=== PATIENT | male | born 1985 | race Caucasian/White ===

== ENCOUNTER 2017-10-02 21:45 | Emergency (ER) | payer OTHER ==
[2017-10-02] MEDS ORDERED: HYDROcodone/ACETAMIN 5-325 MG* 1 TAB PO ONE (22:29)
[2017-10-02] MEDS ORDERED: Orphenadrine Citrate IV* 30 MG/ML 2 ML VIAL IM ONE (22:31)
[2017-10-02] MEDS ORDERED: predniSONE TAB* 20 MG PO ONE (22:31)
--- NOTE | 2017-10-02 22:31 | ED ---
Back Pain - HPI Summary HPI Summary: 31 male presents to ED with complaints of right sided lower back pain that began this morning after working on his furnace. States he was bending down and then went to stand when he had lower right back pain. States he does have chronic back pain, however this pain is new and different. Thinks he may have twisted wrong. States pain is radiating down back of right leg with intermittent numbness feeling. Denies weakness. Is able to bear weight and walk however makes pain worse. Took ibuprofen around 6pm today without much relief. Denies bladder/bowel incontinence, saddle anesthesia, and weakness. No IV drug use. No other complaints. No PMHx. - History of Current Complaint Chief Complaint: EDBackInjuryPain Stated Complaint: BACK & RT LEG PAIN Hx Obtained From: Patient Onset/Duration: Sudden Onset, Lasting Hours, Still Present, Worse Since Onset/Duration: Started Hours Ago, Traumatic, Still Present Timing: Constant, Lasting Hours Back Pain Location: Is Discrete @ - right lower back Severity Initially: Moderate Severity Currently: Moderate Pain Intensity: 6 Pain Scale Used: 0-10 Numeric Character: Sharp, Spasmodic Aggravating Symptom(s): Movement, Walking Alleviating Symptom(s): Rest, Position Associated Signs And Symptoms: Positive: Numbness, Pain with Weight Bearing. Negative: Swelling, Redness, Weakness, Tingling, Abdominal Pain, Flank Pain, Bladder Incontinence, Bowel Incontinence - Risk Factors AAA Risk Factors: Negative TAD Risk Factors: Negative Cauda Equina Risk Factors: Negative Epidural Abscess Risk Factors: Negative - Allergies/Home Medications Allergies/Adverse Reactions: Allergies Allergy/AdvReac Type Severity Reaction Status Date / Time Cefaclor [From [facility]] Allergy Unknown Unknown Verified 10/02/17 21:49 Reaction Details PMH/Surg Hx/FS Hx/Imm Hx Endocrine/Hematology History: Denies: Hx Diabetes Cardiovascular History: Denies: Hx Hypertension Respiratory History: Denies: Hx Asthma History: Reports: Hx Renal Disease - recurrent kidney stones, always passed at home Musculoskeletal History: Reports: Hx Back Problems - Surgical History Surgery Procedure, Year, and Place: n/a - Immunization History Immunizations Up to Date: Yes Infectious Disease History: No Infectious Disease History: Denies: Traveled Outside the [place] in Last 30 Days - Family History Known Family History: Positive: Unknown, Diabetes - DM in grandfather Negative: Hypertension - Social History Alcohol Use: Occasionally Hx Substance Use: No Substance Use Type: Reports: None Hx Tobacco Use: Yes Smoking Status (MU): Former Smoker Review of Systems Constitutional: Negative Cardiovascular: Negative Respiratory: Negative Gastrointestinal: Negative Positive: Arthralgia, Myalgia - lower back pain, right sided All Other Systems Reviewed And Are Negative: Yes Physical Exam Triage Information Reviewed: Yes Vital Signs On Initial Exam: Initial Vitals Temp Pulse Resp BP Pulse Ox 97.8 F 80 16 127/78 98 10/02/17 21:46 10/02/17 21:46 10/02/17 21:46 10/02/17 21:46 10/02/17 21:46 Vital Signs Reviewed: Yes Appearance: Positive: Well-Appearing, Well-Nourished, Pain Distress - mild- moderate Skin: Positive: Warm, Skin Color Reflects Adequate Perfusion, Dry, Other - no edema or ecchymosis no sign of trauma. Negative: Cold, Cyanosis @, Pale, Erythema @ Head/Face: Positive: Normal Head/Face Inspection Neck: Positive: Supple Respiratory/Lung Sounds: Positive: Clear to Auscultation, Breath Sounds Present. Negative: Rales, Rhonchi, Wheezes Cardiovascular: Positive: Normal, RRR, Pulses are Symmetrical in both Upper and Lower Extremities. Negative: Murmur, Rub Abdomen Description: Positive: Nontender, Soft Bowel Sounds: Positive: Present Musculoskeletal: Positive: Normal, Strength/ROM Intact, Pain @ - right lower back pain with movement and weight bearing @ L2-L4 right paraspinal muscle area no spinal tenderness on palpation. right leg pain., Other - no crepitus step off or obvious deformity noted. Negative: Limited @, Interruption @, Abnormal @ , Edema Left Neurological: Positive: Normal, Sensory/Motor Intact, Alert, Oriented to Person Place, Time, CN Intact II-III, Reflexes Intact, NV Bundle Intact Distally, Normal Gait - [place] Coma Scale Coma Scale Total: 15 Diagnostics - Vital Signs Vital Signs Temp Pulse Resp BP Pulse Ox 10/02/17 21:46 97.8 F 80 16 127/78 98 - Laboratory Lab Statement: Any lab studies that have been ordered have been reviewed, and results considered in the medical decision making process. Back Pain Course/Dx - Course Course Of Treatment: due to patient complaints, CHEPE and PE findings xray did not appear necessary at this time. given norflex, norco and prednisone while in ED. continue at home. appears to be suffering a lumosacral strain/sciatica. no concern for other etiology at this time. follow up with pcp. aware of worsening signs and symptoms to watch out for. rest and heat/ice, refrain from lifting and use. - Diagnoses Differential Diagnosis/HQI/PQRI: Positive: Herniated Disc, Strain, Sprain, Other - sciatica Provider Diagnoses: Lumbosacral strain, Sciatica Discharge - Discharge Plan Condition: Stable Disposition: HOME Prescriptions: Cyclobenzaprine TAB* [Flexeril 10 MG TAB*] 10 mg PO BEDTIME PRN #10 tab PRN Reason: Spasms HYDROcodone/ACETAMIN 5-325 MG* [Uvalda 5-325 TAB*] 1 tab PO Q6H PRN #10 tab MDD 2 PRN Reason: Pain predniSONE TAB* [Deltasone TAB*] 20 mg PO DAILY #2 tab Patient Education Materials: Sciatica (ED), Low Back Strain (ED), Acute Low Back Pain (ED) Referrals: [facility] [Outside] No Primary Care Phys,NOPCP [Primary Care Provider] - Additional Instructions: Take prescribed medications as directed. Recommend prednisone in morning and muscle relaxer at bedtime. Continue taking ibuprofen as directed, with food. Do not drive while taking muscle relaxer and pain medication. Apply heating pad and avoid over use. Rest and sit in comfortable positions. Any new or worsening symptoms please seek medical attention as directed. Follow up with PCP. Recommend trying physical therapy.
[2017-10-02 22:55] VITALS: BP 124/72
== END 2017-10-02 22:54 | disposition home or self-care (01) ==
LOC: ED 21:45
DX: S39.012A Strain of muscle, fascia and tendon of lower back, initial encounter (principal); M54.5 Low back pain; Z87.891 Personal history of nicotine dependence; X58.XXXA Exposure to other specified factors, initial encounter; Y93.9 Activity, unspecified; Y92.9 Unspecified place or not applicable
CPT/HCPCS: 99282; J2360; J7512

== ENCOUNTER 2017-12-09 00:20 | Emergency (ER) | payer OTHER ==
--- NOTE | 2017-12-09 00:30 | ED ---
GI/ HPI - HPI Summary HPI Summary: 32 male presents to ED with complaints of left flank pain that began a few hours ago ~ 9:45pm. Patient states he thinks he has a kidney stone. Has had many in the past however last one was a year ago after changing his diet. States he has not been watching his diet like usual lately and thinks that is why he is now having kidney stone. Denies fever, vomiting, abdominal pain, dysuria, hematuria and chest pain. Admits to some intermittent nausea. Describes it to be throbbing and steady pain, sharp at times. No radiation. Normal bowel movements. 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 No other complaints. No PMHx. Does have history of back spasms however this feels more like his previous kidney stones. LBM: yesterday morning 12/07/17 - History of Current Complaint Chief Complaint: EDFlankPain Time Seen by Provider: 12/09/17 00:28 Stated Complaint: FLANK PAIN Hx Obtained From: Patient Onset/Duration: Started Hours Ago, Still Present, Worse Since Timing: Constant, Lasting Hours Severity: Moderate Current Severity: Severe Pain Intensity: 7 Location of Pain: Flank - left Pain Characteristics: Sharp, Cramping - throbbing, Aching Associated Signs and Symptoms: Positive: Flank Pain - left Aggravating Factor(s): Nothing Alleviating Factor(s): Nothing - Allergy/Home Medications Allergies/Adverse Reactions: Allergies Allergy/AdvReac Type Severity Reaction Status Date / Time MS Gonzalez [From [facility]] Allergy Unknown Unknown Verified 10/02/17 21:49 Reaction Details PMH/Surg Hx/FS Hx/Imm Hx Endocrine/Hematology History: Denies: Hx Diabetes Cardiovascular History: Denies: Hx Hypertension Respiratory History: Denies: Hx Asthma History: Reports: Hx Renal Disease - recurrent kidney stones, always passed at home Musculoskeletal History: Reports: Hx Back Problems - Surgical History Surgery Procedure, Year, and Place: n/a - Immunization History Immunizations Up to Date: Yes Infectious Disease History: No Infectious Disease History: Denies: Traveled Outside the [place] in Last 30 Days - Family History Known Family History: Positive: Unknown, Diabetes - DM in grandfather Negative: Hypertension - Social History Alcohol Use: Occasionally Hx Substance Use: No Substance Use Type: Reports: None Hx Tobacco Use: Yes Smoking Status (MU): Former Smoker Review of Systems Constitutional: Negative Cardiovascular: Negative Respiratory: Negative Positive: see HPI, flank pain - left All Other Systems Reviewed And Are Negative: Yes Physical Exam Triage Information Reviewed: Yes Vital Signs On Initial Exam: Initial Vitals Temp Pulse Resp BP Pulse Ox 97.0 F 83 16 135/87 99 12/09/17 00:22 12/09/17 00:22 12/09/17 00:22 12/09/17 00:22 12/09/17 00:22 Vital Signs Reviewed: Yes Appearance: Positive: Well-Appearing, Well-Nourished, Pain Distress - moderate- severe, knees to chest holding left side Skin: Positive: Warm, Skin Color Reflects Adequate Perfusion, Dry. Negative: Cold, Cyanosis @, Pale, Erythema @ Head/Face: Positive: Normal Head/Face Inspection Neck: Positive: Supple, Nontender Respiratory/Lung Sounds: Positive: Clear to Auscultation, Breath Sounds Present. Negative: Rales, Rhonchi, Wheezes Cardiovascular: Positive: Normal, RRR, Pulses are Symmetrical in both Upper and Lower Extremities. Negative: Murmur, Rub Abdomen Description: Positive: Nontender, Soft, CVA Tenderness (L). Negative: No Organomegaly, CVA Tenderness (R), Distended, Guarding, Peritoneal Signs Bowel Sounds: Positive: Present Musculoskeletal: Positive: Normal, Strength/ROM Intact Neurological: Positive: Normal, Sensory/Motor Intact, Alert, Oriented to Person Place, Time Diagnostics - Vital Signs Vital Signs Temp Pulse Resp BP Pulse Ox 12/09/17 00:22 97.0 F 83 16 135/87 99 - Laboratory Result Diagrams: 12/09/17 00:40 12/09/17 00:40 Lab Statement: Any lab studies that have been ordered have been reviewed, and results considered in the medical decision making process. - CT abd/pelvis wo CT Interpretation: Positive (See Comments) - bilateral urolithiasis, more in the right than the left. dominant stone in right measures 4mm. left dominant stone 1-2 mm. no evidence for presence of a uretral stone or obstructive uropathy. CT Interpretation Completed By: Radiologist Re-Evaluation - Re-Evaluation First Eval Re-Evaluation Time: 01:30 Change: Improved - had relief after medication Second Eval Re-Evaluation Time: 02:20 Change: Improved - feeling much better, updated on all results, ready to be d/ c. no pain at this bert. GIGU Course/Dx - Course Course Of Treatment: given pain management and antiemetic. had relief. labs and urinalysis obtained and completely unremarkable. CT abdomen/pelvis obtained and showed some constipation. Renal calculi in right kidney. No other abnormal findings. Patient does get chronic muscular spasms/aches in lower back which may be some of patient's pain along with gas pain/constipation. No other trauma or injury. No other concerns at this time. normal vitals. follow up with pcp. aware of worsening signs and symptoms to watch out for. fluids and rest. anti- inflammatory and muscle relaxer. - Diagnoses Differential Diagnoses - Male: Constipation - /gas pains, Renal Calculi, Renal Colic, Other - muscle spasms, back pain, flank pain Provider Diagnoses: Renal calculi, Left flank pain, Constipation Discharge - Discharge Plan Condition: Stable Disposition: HOME Prescriptions: Cyclobenzaprine TAB* [Flexeril 10 MG TAB*] 10 mg PO BEDTIME PRN #10 tab PRN Reason: Spasms Patient Education Materials: Constipation (ED), High Fiber Diet (ED), Flank Pain (ED), Kidney Stones (ED), Muscle Spasm (ED) Ref[place]: [facility] [place]] Additional Instructions: Continue muscle relaxer and anti-inflammatory to help with back pain/muscle spasm. Heating pad and rest. Laxatives and/or high fiber foods to help assist in bowel movements. Increase fluid intake. Any new or worsening signs/symptoms (fever, increased pain, blood in urine, difficulty urinating, vomiting, abdominal pain) please seek medical attention promptly and return to ED. Follow up with PCP.
[2017-12-09 00:58] LABS: ABS Basophils 0.1 10^3/ul (0-0.2); ABS Eosinophils 0.2 10^3/ul (0-0.6); ABS Lymphocytes 3.3 10^3/ul (1.0-4.8); ABS Monocytes 0.6 10^3/ul (0-0.8); ABS Neutrophils 5.2 10^3/ul (1.5-7.7); ABS Nucleated RBC 0 10^3/ul; Eosinophil % 1.9 % (0-6); Hematocrit 44 % (42-52); Hemoglobin 15.3 g/dl (14.0-18.0); Lymphocyte % 35.7 % (25-47); Mean Corpuscular HGB Conc 35 g/dl (31-36); Mean Corpuscular Hemoglobin 31 pg (27-31); Mean Corpuscular Volume 88 fL (80-94); Mean Platelet Volume 8 um3 (7.4-10.4); Nucleated Red Blood Cells % 0.1; Platelet Count 303 10^3/ul (150-450); Red Cell Distribution Width 13 % (10.5-15); White Blood Count 9.3 10^3/ul (3.5-10.8)
[2017-12-09] MEDS ORDERED: Ketorolac INJ* 30 MG/ML 1 ML VIAL IV PUSH ONE (01:02)
[2017-12-09] MEDS ORDERED: Ondansetron INJ* 2 MG/ML VIAL IV ONE (01:03)
[2017-12-09] MEDS ORDERED: HYDROmorphone INJ* 2 MG/ML CARPUJECT SYRINGE IV SLOW PU ONE (01:03)
[2017-12-09 01:14] LABS: EGFR Non-African American 83.6 (>60)
[2017-12-09 01:23] LABS: Urine Appearance Clear; Urine Blood Negative (Negative); Urine Color Straw; Urine Ketones Negative (Negative); Urine Protein Negative (Negative); Urine Specific Gravity 1.011 (1.010-1.030); Urine Urobilinogen Negative (Negative)
[2017-12-09 02:43] VITALS: BP 108/68
--- NOTE | 2017-12-09 08:38 | RAD ---
INDICATION: LEFT flank pain for 3 hours. COMPARISON: May 12, 2016 CT. TECHNIQUE: Multidetector CT images were obtained from the lung bases to the ischial tuberosities. Evaluation of the viscera is limited without IV contrast. Multiplanar reformation. REPORT: Unremarkable visualized inferior thorax. The unenhanced liver, gallbladder, pancreas, and spleen are unremarkable. Negative for CT abnormality of the upper GI, small bowel, or retrocecal appendix. Moderate stool present throughout the colon. Negative for ascites, free air, hernias. Normal adrenal glands. Negative for hydronephrosis. Multiple bilateral small renal collecting system stones with greater number of stones on the RIGHT than the LEFT. Dominant stone on the RIGHT measures 4 mm. Dominant stone on the LEFT measures 1 -- 2 mm. Negative for ureteral stone or dilatation. Negative for perirenal or periureteral inflammatory stranding. Unremarkable distended urinary bladder. Multiple pelvic phleboliths. Negative for lymphadenopathy. Normal diameter abdominal aorta and iliac arteries. Physiologic distention of the IVC. Negative for suspicious osseous lesions. IMPRESSION: Bilateral urolithiasis without evidence for presence of a ureteral stone or obstructive uropathy. RIGHT ureteral stone on the 2005 exam is no longer present.
== END 2017-12-09 02:40 | disposition home or self-care (01) ==
LOC: ED 00:20
DX: N20.0 Calculus of kidney (principal); K59.00 Constipation, unspecified; Z87.891 Personal history of nicotine dependence; Z88.1 Allergy status to other antibiotic agents
CPT/HCPCS: 36415; 74176; 80053; 81003; 83605; 85025; 86140; 96374; 96375; 99282; J1170; J1885; J2405

== ENCOUNTER 2018-04-01 11:42 | Emergency (ER) | payer OTHER ==
--- NOTE | 2018-04-01 13:16 | RAD ---
Indication: Limited range of motion and extreme ankle pain with radiation to the fourth and fifth metatarsals post fall from ladder. Comparison: No relevant prior exams available on the [facility] [place] [place]. Technique: AP, lateral, and oblique views LEFT foot. AP, lateral, and oblique views LEFT ankle. REPORT AND IMPRESSION: Normal articular alignment at the ankle and foot. Small nondisplaced avulsion fracture at the proximal tip of the tuberosity of the base of the fifth metatarsal noted reference the lateral foot view. Negative for additional fracture. Unremarkable soft tissue contours.
--- NOTE | 2018-04-01 13:16 | RAD ---
Indication: Limited range of motion and extreme ankle pain with radiation to the fourth and fifth metatarsals post fall from ladder. Comparison: No relevant prior exams available on the [facility] for comparison. Technique: AP, lateral, and oblique views LEFT foot. AP, lateral, and oblique views LEFT ankle. REPORT AND IMPRESSION: Normal articular alignment at the ankle and foot. Small nondisplaced avulsion fracture at the proximal tip of the tuberosity of the base of the fifth metatarsal noted reference the lateral foot view. Negative for additional fracture. Unremarkable soft tissue contours.
[2018-04-01] MEDS ORDERED: Ibuprofen TAB* 600 MG PO ONE (14:16)
--- NOTE | 2018-04-01 14:16 | ED ---
Lower Extremity - HPI Summary HPI Summary: Patient is an otherwise healthy 28 4L male presenting to the ED after a fall off a roof onto a ladder and then down to the ground. He states the only pain he has is to his left ankle and left side of his foot radiating to the dorsum of the foot. Denies any calcaneal pain. Denies any back pain. He states he did not hit his head, no LOC and did not land directly onto his feet. He is unable to ambulate due to pain, pain is currently a 10/10. Has not taken any ibuprofen or Tylenol for pain. Has not had any ice to the area. He denies any other injuries, no signs of trauma or abrasions. Denies any swelling or ecchymosis to the ankle or the foot. Has had several sprains to the ankle but no fractures. - History of Current Complaint Chief Complaint: EDExtremityLower Stated Complaint: LT ANKLE INJURY Time Seen by Provider: 04/01/18 11:56 Hx Obtained From: Patient Mechanism Of Injury: Fall From Height Of: - 10 feet - fell on ladder first, then down to the ground Onset/Duration: Hours Severity Initially: Mild Severity Currently: Mild Pain Intensity: 5 Pain Scale Used: 0-10 Numeric Timing: Constant Location: Is Discrete @ - L foot and ankle Character Of Pain: Aching Associated Signs And Symptoms: Negative: Swelling, Redness, Bruising, Weakness, Abdominal Pain, Knee Pain Aggravating Factor(s): Standing, Ambulation Alleviating Factor(s): Rest Able to Bear Weight: No - Risk Factors Gout Risk Factors: Negative DVT Risk Factors: Negative Septic Arthritis Risk Factor: Negative - Allergies/Home Medications Allergies/Adverse Reactions: Allergies Allergy/AdvReac Type Severity Reaction Status Date / Time cefaclor [From [facility]] Allergy Unknown Verified 04/01/18 12:10 Reaction Details Home Medications: Home Medications NK [No Home Medications Reported] 04/01/18 [History Confirmed 04/01/18] PMH/Surg Hx/FS Hx/Imm Hx Previously Healthy: Yes Endocrine/Hematology History: Denies: Hx Diabetes Cardiovascular History: Denies: Hx Hypertension Respiratory History: Denies: Hx Asthma History: Reports: Hx Renal Disease - recurrent kidney stones, always passed at home Musculoskeletal History: Reports: Hx Back Problems - Surgical History Surgery Procedure, Year, and Place: n/a - Immunization History Date of Tetanus Vaccine: 15 yrs ago Hx Pertussis Vaccination: No Immunizations Up to Date: Yes Infectious Disease History: No Infectious Disease History: Denies: Traveled Outside the [place] in Last 30 Days - Family History Known Family History: Positive: Unknown, Diabetes - DM in grandfather Negative: Hypertension - Social History Occupation: Employed Full-time Lives: With Family Alcohol Use: Occasionally Hx Substance Use: No Substance Use Type: Reports: None Hx Tobacco Use: Yes Smoking Status (MU): Former Smoker Review of Systems Constitutional: Negative Negative: Fever, Fatigue Cardiovascular: Negative Respiratory: Negative Negative: no symptoms reported, see HPI Positive: Arthralgia, Myalgia Skin: Negative Negative: Rash, Bruising Neurological: Negative All Other Systems Reviewed And Are Negative: Yes Physical Exam Triage Information Reviewed: Yes Vital Signs On Initial Exam: Initial Vitals Temp Pulse Resp BP Pulse Ox 98.6 F 95 18 144/80 100 04/01/18 11:45 04/01/18 11:45 04/01/18 11:45 04/01/18 11:45 04/01/18 11:45 Vital Signs Reviewed: Yes Appearance: Positive: Well-Appearing, Well-Nourished Skin: Positive: Skin Color Reflects Adequate Perfusion Head/Face: Positive: Normal Head/Face Inspection Eyes: Positive: EOMI, ELISABETH, Conjunctiva Clear Neck: Positive: Supple, No Lymphadenopathy Respiratory/Lung Sounds: Positive: Clear to Auscultation, Breath Sounds Present Cardiovascular: Positive: RRR, Pulses are Symmetrical in both Upper and Lower Extremities Musculoskeletal: Positive: Pain @ - Left dorsum of the foot and left lateral ankle over ATFL, no signs of Achilles injury Neurological: Positive: Alert, Oriented to Person Place, Time, Unable to Assess Gait, Speech Normal Psychiatric: Positive: Normal AVPU Assessment: Alert - Switchback Coma Scale Best Eye Response: 4 - Spontaneous Best Motor Response: 6 - Obeys Commands Best Verbal Response: 5 - Oriented Coma Scale Total: 15 Diagnostics - Vital Signs Vital Signs Temp Pulse Resp BP Pulse Ox 04/01/18 11:45 98.6 F 95 18 144/80 100 - Laboratory Lab Statement: Any lab studies that have been ordered have been reviewed, and results considered in the medical decision making process. Lower Extremity Course/Dx - Course Course Of Treatment: Patient is evaluated for foot and ankle pain. No pain to palpation of the lower extremity. X-ray obtained which shows normal articular alignment of the ankle and foot. Small nondisplaced avulsion fracture at the proximal tip of the tuberosity of the base of the fifth metatarsal noted reference the lateral foot view. Negative for additional fracture. Unremarkable soft tissue contours. On physical examination he is unable to plantarflex or dorsiflex due to pain. There is pain with light palpation to the left lateral ankle over the ATFL with no swelling or ecchymosis. There is pain with light palpation to the dorsum of the foot. No pain to the toes or just superior to the ankle joint. There is no pain to deep palpation of the lower extremity. Pulses +2 intact bilaterally both pedally and posterior tibial. Cap refill <2 sec. He is given 600mg Ibuprofen. A and O 3. GCS 15. - Diagnoses Provider Diagnoses: Fracture of metatarsal bone Discharge - Sign-Out/Discharge Documenting (check all that apply): Discharge/Admit/Transfer - Discharge Plan Condition: Stable Disposition: HOME Patient Education Materials: Avulsion Fracture (ED) Forms: *Work Release Referrals: Skip Alejandre MD [Medical Doctor] - No Primary Care Phys,NOPCP [Primary Care Provider] - Additional Instructions: Ibuprofen 600 mg 3 times daily Nonweightbearing until orthopedic follow-up Crutches are given Keep boot on if ambulating May take off and placed ice over the area and elevate - Billing Disposition and Condition Condition: STABLE Disposition: HOME
[2018-04-01 14:53] VITALS: BP 114/75
== END 2018-04-01 14:52 | disposition home or self-care (01) ==
LOC: ED 11:42
DX: S92.355A Nondisplaced fracture of fifth metatarsal bone, left foot, initial encounter for closed fracture (principal); W13.2XXA Fall from, out of or through roof, initial encounter; Y92.9 Unspecified place or not applicable; Z87.891 Personal history of nicotine dependence; Z88.3 Allergy status to other anti-infective agents
CPT/HCPCS: 99282; A9270-GY

== ENCOUNTER 2018-05-22 09:20 | Emergency (ER) | payer OTHER ==
--- OUTSIDE RECORDS SUMMARY | 2018-05-22 09:40 | XMS REPORT ---
:1985 External Reference #:[id number] Author Organization [facility] Address [address] [place] [address] [place] [address] Phone [phone] Care Team Providers Name Role Phone Walt Valle M.D. 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 ETOH Use Occasionally consumes alcohol Smoking Patient is a former smoker Allergies, Adverse Reactions, Alerts Date Description Reaction Status Severity Comments 04/03/2018 Cefaclor active Medications Medication Date Status Form Strength Qnty SIG Indications Ordering Provider No Active 04/03/2018 Active Unknown Medications Vital Signs Date Vital Result Comment 05/15/2018 Height 69 inches 5'9" Weight 175.00 lb Heart Rate 88 /min Respiratory Rate 17 /min Pain Level 2 BMI (Body Mass Index) 25.8 kg/m2 04/03/2018 Height 69 inches 5'9" Weight 175.00 lb BP Systolic 160 mmHg BP Diastolic 88 mmHg Respiratory Rate 18 /min Body Temperature 97.5 F Pain Level 8 BMI (Body Mass Index) 25.8 kg/m2 Results Description No Information Procedures Description No Information Encounters Type Date Location Provider CPT E/M Dx Office Visit 04/03/2018 [place] [id number] 2:00p Of [facility].. [id number] [id number] Plan of Care Future Appointment(s):06/12/2018 1:45 pm - Abdoul Fischer MD at [facility].05/15/2018 - Abdoul Fischer, [id number] Nondisp fx of fifth metatarsal bone, left foot, initNew Xrays:Foot Left 3+ VWSFollow up:Follow Up: 4 weeks
--- NOTE | 2018-05-22 10:07 | ED ---
GI/ HPI - HPI Summary HPI Summary: 32 y/o male presents to ED c/o R side flank pain radiating into the RLQ starting at 07:00 this morning described as a severe ache. Pain rated 9/10 in severity. PMHx kidney stones. Associated sx: nausea. Pain aggravated with breathing. This is scribe Ed Scarlet documenting for attending Giancarlo Pickens MD - History of Current Complaint Chief Complaint: EDFlankPain Stated Complaint: POSS KIDNEY STONE Hx Obtained From: Patient Onset/Duration: Started Hours Ago Timing: Constant Current Severity: Severe Pain Intensity: 9 Location of Pain: RLQ, Flank - R Pain Characteristics: Aching Associated Signs and Symptoms: Positive: Nausea - Allergy/Home Medications Allergies/Adverse Reactions: Allergies Allergy/AdvReac Type Severity Reaction Status Date / Time cefaclor [From [facility]] Allergy Unknown Verified 04/01/18 12:10 Reaction Details PMH/Surg Hx/FS Hx/Imm Hx Previously Healthy: No Endocrine/Hematology History: Denies: Hx Diabetes Cardiovascular History: Denies: Hx Hypertension Respiratory History: Denies: Hx Asthma History: Reports: Hx Renal Disease - recurrent kidney stones, always passed at home Musculoskeletal History: Reports: Hx Back Problems - Surgical History Surgery Procedure, Year, and Place: n/a - Immunization History Date of Tetanus Vaccine: 15 yrs ago Infectious Disease History: No Infectious Disease History: Denies: Traveled Outside the [place] in Last 30 Days - Family History Known Family History: Positive: Unknown, Diabetes - DM in grandfather Negative: Hypertension - Social History Alcohol Use: Occasionally Hx Substance Use: No Substance Use Type: Reports: None Hx Tobacco Use: Yes Smoking Status (MU): Former Smoker Review of Systems Constitutional: Negative Eyes: Negative ENT: Negative Cardiovascular: Negative Respiratory: Negative Positive: Nausea Positive: flank pain Musculoskeletal: Negative Skin: Negative Neurological: Negative Psychological: Normal All Other Systems Reviewed And Are Negative: Yes Physical Exam - Summary Physical Exam Summary: VITAL SIGNS: Reviewed. GENERAL: Patient is a well-developed and nourished MALE who is in acute distress secondary to pain HEAD AND FACE: Normocephalic EYES: PERRLA, EOMI x 2. EARS: Hearing grossly intact. MOUTH: Oropharynx within normal limits. NECK: Supple, trachea is midline, no adenopathy, no JVD, no carotid bruit. CHEST: Symmetric, no tenderness at palpation LUNGS: Clear to auscultation bilaterally. No wheezing or crackles. CVS: Regular rate and rhythm, S1 and S2 present, no murmurs or gallops appreciated. ABDOMEN: R CVA tenderness. Bowel sounds are normal. No abdominal abnormal pulsations. EXTREMITIES: Full ROM in all major joints, no edema, no cyanosis or clubbing. NEURO: Alert and oriented x 3. No acute neurological deficits. Speech is normal and follows commands. SKIN: Dry and warm Triage Information Reviewed: Yes Vital Signs On Initial Exam: Initial Vitals Temp Pulse Resp BP Pulse Ox 98.9 F 70 16 144/80 98 05/22/18 09:26 05/22/18 09:26 05/22/18 09:26 05/22/18 09:26 05/22/18 09:26 Vital Signs Reviewed: Yes Diagnostics - Vital Signs Vital Signs Temp Pulse Resp BP Pulse Ox 05/22/18 09:26 98.9 F 70 16 144/80 98 - Laboratory Result Diagrams: 05/22/18 10:26 05/22/18 10:26 Lab Statement: Any lab studies that have been ordered have been reviewed, and results considered in the medical decision making process. - CT ABD/PEL CT CT Interpretation: Positive (See Comments) - 3 MM RIGHT UVJ CALCULUS WITH MILD OBSTRUCTIVE FINDINGS. BILATERAL NONOBSTRUCTIVE NEPHROLITHIASIS. CT Interpretation Completed By: Radiologist Re-Evaluation - Re-Evaluation 1 Re-Evaluation Time: 11:20 Change: Improved GIGU Course/Dx - Course Assessment/Plan: Patient is a 32-year-old male who presents to the emergency department with chief complaint of right flank pain. Patient reports that the pain started approximately 8:00. Patient has history of kidney stones and he reports the pain is similar to his usual kidney stones. Blood test results without any significant abnormality except for glucose of 108. Urinalysis 3+ blood. Abdominopelvic CT impression: 3 mm right UVJ calculus with mild obstructive findings. Bilateral nonobstructive nephrolithiasis. In the ED course the patient was given IV fluids, patient was given Toradol for the pain and Zofran for nausea and vomiting. Patient was given an additional dose of morphine, Flomax and now the symptoms have significantly improved. The patient reports pain 0 out of 10. Therefore the patient was discharged home with follow -up with urology. I discussed all the findings and test results with the patient. Patient was instructed to return to the emergency room immediately if any of the symptoms return or worsens. Plan of care was discussed with the patient and understands and agrees. All questions were answered at patient satisfaction. There were no further complaints or concerns. Lung exam before discharge: CTA B/L. Good air exchange. No wheezing or crackles heard. CVS: S1 and S2 present. No murmurs appreciated. Patient is alert and oriented x 3. Patient is hemodynamically stable. Patient will be discharged home with follow up PCP in the next 2-3 days - Diagnoses Provider Diagnoses: Ureterolithiasis, Kidney stones Discharge - Sign-Out/Discharge Documenting (check all that apply): Patient Departure - Discharge Plan Condition: Stable Disposition: HOME Prescriptions: Ibuprofen TAB* [Motrin TAB* 800 MG] 800 mg PO Q8H PRN #30 tab PRN Reason: Pain oxyCODONE/Acetamin 5/325 MG* [Percocet 5/325 TAB*] 1 tab PO Q6H PRN #12 tab MDD 4 PRN Reason: Pain Tamsulosin CAP* [Flomax CAP*] 0.4 mg PO DAILY #10 cap Patient Education Materials: Ureteral Stones (ED), Kidney Stones (ED) Referrals: [facility] REFERRAL [Outside] - 4 Days (PLEASE F/U IN 3-5 DAYS) Pepe Seals MD [Medical Doctor] - 2 Days (PLEASE F/U IN 1-2 DAYS) Additional Instructions: RETURN FOR CHANGING/WORSENING SYMPTOMS
[2018-05-22] MEDS ORDERED: Ketorolac INJ* 30 MG/ML 1 ML VIAL IV ONE (10:12)
[2018-05-22] MEDS ORDERED: NS 0.9% 1000 ML* 1,000 ML IV ONE (10:12)
[2018-05-22] MEDS ORDERED: Ondansetron INJ* 2 MG/ML VIAL IV ONE (10:17)
[2018-05-22 10:35] LABS: ABS Basophils 0 10^3/ul (0-0.2); ABS Eosinophils 0.1 10^3/ul (0-0.6); ABS Lymphocytes 1.5 10^3/ul (1.0-4.8); ABS Monocytes 0.4 10^3/ul (0-0.8); ABS Nucleated RBC 0 10^3/ul; Eosinophil % 0.9 % (0-6); Hematocrit 42 % (42-52); Hemoglobin 14.5 g/dl (14.0-18.0); Lymphocyte % 21.8 % (25-47); Mean Corpuscular HGB Conc 35 g/dl (31-36); Mean Corpuscular Hemoglobin 30 pg (27-31); Mean Corpuscular Volume 88 fL (80-94); Mean Platelet Volume 7.9 um3 (7.4-10.4); Nucleated Red Blood Cells % 0.1; Platelet Count 293 10^3/ul (150-450); Red Blood Count 4.78 10^6/ul (4.00-5.40); Red Cell Distribution Width 13 % (10.5-15); White Blood Count 7.1 10^3/ul (3.5-10.8)
[2018-05-22 10:47] LABS: Urine Appearance Clear; Urine Blood 3+ (Negative); Urine Color Yellow; Urine Ketones Negative (Negative); Urine Protein Negative (Negative); Urine Red Blood Cell 3+(>10/hpf) (Absent); Urine Specific Gravity 1.018 (1.010-1.030); Urine Urobilinogen Negative (Negative); Urine White Blood Cell Trace(0-5/hpf) (Absent)
[2018-05-22 10:54] LABS: EGFR Non-African American 82.7 (>60)
--- NOTE | 2018-05-22 10:54 | RAD ---
INDICATION: Right flank pain COMPARISON: CT December 09, 2017 TECHNIQUE: Noncontrast axial source images were acquired from the level hemidiaphragms to the symphysis pubis as part of CT imaging for renal stone. Lung bases: The lung bases are clear. Liver: The liver is normal in size. Noncontrast imaging shows no evidence of a hepatic mass or ductal dilatation. Gallbladder: There are no calcified gallstones. There is no evidence of wall thickening or pericholecystic fluid.. Spleen: The spleen is normal in size. The noncontrast CT appearance is normal. Pancreas: Noncontrast imaging shows no pancreatic mass or ductal dilitation. Adrenal glands: No masses are identified. Kidneys/Bladder: There is minor right-sided hydronephrosis and hydroureter with a 3 mm calculus at the right UVJ producing the mild obstructive phenomena. There are multiple additional nonobstructive right renal calculi in the 2 mm range. There there are 2 or 3 1 to 2 mm left renal calculi. There is no obstruction of the left. There is no renal mass on noncontrast evaluation. The bladder is partially empty but appears unremarkable. Adenopathy: There is no evidence of intraperitoneal or retroperitoneal adenopathy. Evaluation is limited without oral contrast. Fluid collections: There are no free or localized fluid collections. Vessels: The aorta and iliac vessels are normal in caliber. There are no significant atherosclerotic changes. The IVC appears normal Pelvic organs: The prostate and seminal vesicles appear normal GI tract: Evaluation of the bowel is limited without oral contrast. The stomach, small bowel, and lower GI tract appear grossly normal. There are no obstructive findings. The appendix is visualized and appears normal. Soft tissues: No soft tissue abnormalities of the extraperitoneal abdomen or pelvis are identified. Osseous structures: There are no acute osseous findings. IMPRESSION: 3 MM RIGHT UVJ CALCULUS WITH MILD OBSTRUCTIVE FINDINGS. BILATERAL NONOBSTRUCTIVE NEPHROLITHIASIS.
[2018-05-22] MEDS ORDERED: Morphine VIAL* 4 MG/ML VIAL (1 ml vial) IV ONE (11:24)
[2018-05-22] MEDS ORDERED: Tamsulosin CAP* 0.4 MG PO ONE (11:24)
[2018-05-22] MEDS ORDERED: Morphine INJ* 2 MG/ML 1 ML SYRINGE (TWO MG - NEW SYRINGE VERSION) ONE (11:35)
[2018-05-22 12:27] VITALS: BP 122/68
== END 2018-05-22 12:25 | disposition home or self-care (01) ==
LOC: ED 09:20
DX: N20.2 Calculus of kidney with calculus of ureter (principal); R11.0 Nausea; R10.84 Generalized abdominal pain; Z87.891 Personal history of nicotine dependence
CPT/HCPCS: 36415; 74176; 80053; 81003; 81015; 85025; 86140; 87086; 96374; 96375; 99283; J1885; J2270; J2405